=== PATIENT | female | born 1990 | race African-American/Black ===

== ENCOUNTER 2018-07-09 05:06 | Inpatient (IN) ==
[2018-07-08 15:17] LABS: BASO# 0.04 X1000 (0.0-0.2); BASO% 0.3 % (0.0-0.8); EOS# 0.09 X1000 (0.0-0.7); EOS% 0.7 % (0.0-10.0); HEMATOCRIT 31.8 % (37.0-47.0); HEMOGLOBIN 10.5 g/dL (12.0-16.0); IMM GRAN# 0.31 X1000 (0.0-0.04); IMM GRAN% 2.4 % (0.0-0.5); LYMPH# 2.76 X1000 (1.2-3.4); LYMPH% 21.6 % (20.5-51.1); MONO# 0.97 X1000 (0.11-0.59); MONO% 7.6 % (1.7-9.3); MPV 9.6 FL (7.4-10.4); NEUT# 8.61 X1000 (1.4-6.5); NEUT% 67.4 % (42.2-75.2); PLT 288 X1000 (130-400); RBC 3.28 XMIL (4.2-5.4); RDW 13.1 % (11.5-14.5); WBC 12.78 X1000 (4.8-10.8)
--- NOTE | 2018-07-08 16:22 | HISTORY AND PHYSICAL ---
HISTORY OF PRESENT ILLNESS: The patient is a 28-year-old black female, G4, P1, A2, who will be 39 weeks gestation on 07/09/2018 based on an EDC of 07/16/2018. The patient has a history of prior section and will be scheduled for repeat section. care significant for anemia with, rubella nonimmune status. PAST MEDICAL HISTORY: Unremarkable. PAST SURGICAL HISTORY: Significant for a previous section as well as a D and C x2. PAST OBSTETRIC HISTORY: G4, P1, A2, elective AB x2. GYNECOLOGICAL HISTORY: Menarche at age 14 and has otherwise been normal. FAMILY HISTORY: Significant for strokes as well as breast cancer. REVIEW OF SYSTEMS: Migraines occasional. SOCIAL HISTORY: Tobacco use none. Alcohol use none. MEDICATIONS: vitamins as well as iron pills. ALLERGIES: No known drug allergies. PHYSICAL EXAMINATION: VITAL SIGNS: Height 5 feet 3 inches, weight 165 pounds. Blood pressure 105/57, pulse 84, respirations 20. heart rate 148. HEENT: Pupils equal, round, react light and accommodation. Extraocular movements intact. Oropharynx clear. NECK: Supple. No thyromegaly. LUNGS: Clear to auscultation. HEART: Regular rate and rhythm. ABDOMEN: Gravid, nontender. EXTREMITIES: No clubbing, cyanosis, or edema. NEUROLOGIC: Cranial nerves II through XII grossly intact. Motor 5/5. ASSESSMENT AND PLAN: A 28-year-old black female, G4, P1, A2 and at 39 weeks gestation on 07/09/2018 and was scheduled for repeat section on that day. The patient counseled about the risks of surgery including bleeding, infection, bowel or bladder injury. cc: Neil Douglas III, MD
[2018-07-09] MEDS ORDERED: REGLAN PO ONE (05:10)
[2018-07-09] MEDS ORDERED: KEFZOL 1 GM/D5W 1 GM/50 ML IVPB IV PRN (05:10)
[2018-07-09] MEDS ORDERED: PEPCID PO ONE (05:10)
[2018-07-09] MEDS: LR 1,000 ML IV SCH ×2 (05:44→06:16)
[2018-07-09 05:50] LABS: URINE SOURCE VOIDED
[2018-07-09 06:07] LABS: BILIRUBIN URINE NEGATIVE (NEGATIVE); BLOOD URINE 2+ (NEGATIVE); CLARITY SL. CLOUDY (CLEAR); COLOR YELLOW; GLUCOSE URINE NEGATIVE (NEGATIVE); KETONE URINE TRACE mg/dL (NEGATIVE); LEUKOCYTES URINE 1+ (NEGATIVE); NITRITE URINE NEGATIVE (NEGATIVE); PROTEIN URINE 1+(30 mg/dL) mg/dL (NEGATIVE); SP GRAVITY URINE 1.015; UROBILINOGEN URINE 4 mg/dL
[2018-07-09 06:17] LABS: UR AMPHETAMINES QUAL NONE DETECTED (NONE DETECT); UR BARBITUATES QUAL NONE DETECTED (NONE DETECT); UR BENZODIAZEPIN QUAL NONE DETECTED (NONE DETECT); UR CANNABINOIDS QUAL NONE DETECTED (NONE DETECT); UR COCAINE QUAL NONE DETECTED (NONE DETECT); UR METHADONE QUAL NONE DETECTED (NONE DETECT); UR METHAMPHETAMINE QUAL NONE DETECTED (NONE DETECT); UR OPIATES QUAL NONE DETECTED (NONE DETECT); UR OXYCODONE QUAL NONE DETECTED (NONE DETECT); UR PCP QUAL NONE DETECTED (NONE DETECT); UR PROPOXYPHENE QUAL NONE DETECTED (NONE DETECT); UR TCA QUAL NONE DETECTED (NONE DETECT)
[2018-07-09] MEDS ORDERED: DURAMORPH ONE (06:56)
[2018-07-09] MEDS ORDERED: ZOFRAN ONE (06:57)
[2018-07-09] MEDS ORDERED: EPHEDRINE ONE (06:57)
[2018-07-09] MEDS ORDERED: PITOCIN ONE (06:57)
[2018-07-09] MEDS ORDERED: CALCIUM CHLORIDE SYRINGE ONE (07:02)
[2018-07-09] MEDS ORDERED: MARCAINE 0.5% PF ONE (07:06)
[2018-07-09] MEDS ORDERED: TORADOL ONE (07:55)
[2018-07-09] MEDS ORDERED: AMBIEN PO PRN (08:15)
[2018-07-09] MEDS ORDERED: M-M-R II VACCINE SUBQ ONE (08:15)
[2018-07-09] MEDS ORDERED: NORCO-5 PO PRN (08:15)
[2018-07-09] MEDS ORDERED: DEMEROL PO PRN ×2 (08:15)
[2018-07-09] MEDS ORDERED: PHENERGAN IM PRN (08:15)
[2018-07-09] MEDS ORDERED: PITOCIN IM PRN (08:15)
[2018-07-09] MEDS ORDERED: MYLICON PO PRN (08:15)
[2018-07-09] MEDS ORDERED: DEMEROL IM PRN (08:15)
[2018-07-09] MEDS ORDERED: HYDROXYZINE IM PRN (08:15)
[2018-07-09] MEDS ORDERED: BOOSTRIX VACCINE IM ONE (08:15)
[2018-07-09] MEDS ORDERED: DULCOLAX PR PRN (08:15)
[2018-07-09] MEDS ORDERED: PITOCIN 20 UNITS/NS 20 UNITS/1,000 ML IV.SOLN IV ONE (08:15)
[2018-07-09] MEDS ORDERED: ZOFRAN IV PRN ×2 (08:30)
[2018-07-09] MEDS ORDERED: BENADRYL IV PRN (08:30)
[2018-07-09] MEDS ORDERED: NARCAN INJ PRN (08:30)
[2018-07-09] MEDS ORDERED: ZOFRAN ODT PO PRN (08:30)
--- NOTE | 2018-07-09 08:40 | OPERATIVE NOTE ---
PROCEDURE DATE: 07/09/2018 PREOPERATIVE DIAGNOSIS: Intrauterine at 39 weeks with a history of prior section. POSTOPERATIVE DIAGNOSES: 1. Intrauterine at 39 weeks with a history of prior section. 2. Operative delivery of a male , 5 pounds 1 ounce, with Apgars of 9 and 9 at 0734 on 07/09/2018, breech presentation noted. PROCEDURE PERFORMED: Repeat low-transverse section. SURGEON: Neil Douglas III, MD. MEDICAL OFFICE TECHNOLOGY INSTRUCTOR: David Durham DO. ANESTHESIA: Spinal, Dr. Lopez. FINDINGS: Normal-appearing uterus, tubes, and ovaries. COMPLICATIONS: None. ESTIMATED BLOOD LOSS: 500 mL. SPECIMENS REMOVED: None. DRAINS: Huitron to straight drain. COUNTS: All counts were correct x3. INDICATIONS: Patient 28-year-old black female, G4, P1, A2 at 39 weeks gestation with his history of prior section, for a repeat section. Patient was counseled about the risks of surgery including bleeding, infection, bowel or bladder injury. PROCEDURE: The patient was taken to Labor and Delivery OR. Spinal anesthesia was then employed and the patient was placed in supine position with a roll under right hip. She was then prepped and draped in a sterile fashion with placement of Huitron catheter and adequate anesthesia was noted by using Allis clamps on skin and then a Pfannenstiel skin incision was made on lower abdomen using a scalpel. This was taken down sharply to the fascia layer. A small akash was made in the rectus fascia, then fascial incision was extended bilaterally by curved Bernard scissors. Then blunt and sharp dissection of the superior and inferior aspects of the rectus fascia was performed. Then the rectus muscles divided in the midline. Peritoneal layer was entered bluntly and then the peritoneal incision was extended superiorly and inferiorly with care taken to avoid the bladder. Bladder reflection was created using Metzenbaum scissors. The bladder blade was placed into the abdominal cavity and then a transverse incision was made on the lower uterine segment. This incision was then extended bilaterally by the surgeon's fingers. The fluid upon entry was noted to be clear. Upon entry, breech presentation was noted and breech extraction was performed without difficulty. The umbilical cord was clamped twice and then cut and infant handed to the nurse in attendance for delivery after bulb suction of nose and mouth, and then the cord blood samples obtained at this time. Placenta was then manually extracted. Uterus was exteriorized. A wet lap was placed around the uterus, a dry lap was then used to curette the uterine cavity of clots and debris x2. The uterine incision was then closed using 0 chromic in a running, locking fashion x1. Good hemostasis was noted. The posterior cul-de-sac was irrigated copiously. The uterus was then replaced back into the abdomen. Pericolic gutters were cleansed with moist lap sponges bilaterally. The uterine incision and bladder reflection were inspected and good hemostasis was noted. Peritoneal layer was then closed using 2-0 chromic in a running fashion x1 and 2 interrupted sutures to reapproximate the rectus muscle of 2-0 chromic and then the fascia layer was then closed using 0 PDS in a running fashion x1. Subcutaneous layer was then irrigated and electrocautery was used to obtain hemostasis and the skin was then reapproximated using michael. Patient tolerated the procedure well and was taken to the recovery room in stable condition. All counts were correct x3. cc: Neil Douglas III, MD
[2018-07-09] MEDS: FERROUS SULFATE PO SCH (09:45)
[2018-07-09] MEDS: MYLICON PO SCH ×4 (09:46→21:14)
[2018-07-09] MEDS: TORADOL IV SCH ×3 (09:47→20:14)
[2018-07-09] MEDS ORDERED: MORPHINE IV PRN (12:51)
[2018-07-09] MEDS: OFIRMEV 1000 MG/ISOTONIC SOLN 1,000 MG/100 ML BOTTLE IV SCH ×2 (13:02→18:59)
[2018-07-09] MEDS: PITOCIN 10 UNITS/NS 1,000 ML IV SCH (17:36)
[2018-07-09] MEDS: PERICOLACE PO SCH (21:15)
[2018-07-09] MEDS: ATARAX PO PRN (22:07)
[2018-07-10] MEDS: OFIRMEV 1000 MG/ISOTONIC SOLN 1,000 MG/100 ML BOTTLE IV SCH ×2 (01:08→06:52)
[2018-07-10] MEDS: ATARAX PO PRN (01:11)
[2018-07-10] MEDS: PITOCIN 10 UNITS/NS 1,000 ML IV SCH (01:54)
[2018-07-10] MEDS: TORADOL IV SCH (01:55)
[2018-07-10 06:15] LABS: BASO# 0.03 X1000 (0.0-0.2); BASO% 0.3 % (0.0-0.8); EOS# 0.12 X1000 (0.0-0.7); EOS% 1.1 % (0.0-10.0); HEMATOCRIT 25.3 % (37.0-47.0); HEMOGLOBIN 8.1 g/dL (12.0-16.0); IMM GRAN# 0.13 X1000 (0.0-0.04); IMM GRAN% 1.2 % (0.0-0.5); LYMPH# 2.87 X1000 (1.2-3.4); LYMPH% 27.2 % (20.5-51.1); MCH 31.4 PG (27-31); MCV 98.1 FL (81-99); MONO# 0.75 X1000 (0.11-0.59); MONO% 7.1 % (1.7-9.3); MPV 9.3 FL (7.4-10.4); NEUT# 6.67 X1000 (1.4-6.5); NEUT% 63.1 % (42.2-75.2); PLT 209 X1000 (130-400); RBC 2.58 XMIL (4.2-5.4); RDW 12.8 % (11.5-14.5); WBC 10.57 X1000 (4.8-10.8)
[2018-07-10] MEDS ORDERED: LR 1,000 ML IV SCH (08:15)
[2018-07-10] MEDS: FERROUS SULFATE PO SCH (09:20)
[2018-07-10] MEDS: MOTRIN PO PRN ×2 (09:20→19:26)
[2018-07-10] MEDS: NORCO-10 PO PRN ×3 (09:20→19:26)
[2018-07-10] MEDS: MYLICON PO SCH ×4 (09:21→21:56)
[2018-07-10] MEDS: PERICOLACE PO SCH (21:56)
[2018-07-10] MEDS: PERCOCET-10 PO PRN (22:38)
[2018-07-11] MEDS: PERCOCET-10 PO PRN ×5 (02:42→20:34)
[2018-07-11] MEDS: MOTRIN PO PRN ×2 (02:42→10:36)
[2018-07-11] MEDS ORDERED: TEARISOL OPH SOLUTION BOTH EYES PRN (03:05)
[2018-07-11] MEDS: FERROUS SULFATE PO SCH (08:43)
[2018-07-11] MEDS: MYLICON PO SCH ×3 (08:44→19:37)
[2018-07-11] MEDS ORDERED: PNEUMOVAX 23 IM ONE (10:15)
[2018-07-11] MEDS: PERICOLACE PO SCH (20:34)
[2018-07-12] MEDS: MYLICON PO SCH ×3 (00:56→13:11)
[2018-07-12] MEDS: MOTRIN PO PRN ×2 (00:57→09:04)
[2018-07-12] MEDS: PERCOCET-10 PO PRN ×3 (00:57→11:18)
[2018-07-12] MEDS: POLYTRIM OPH SOLUTION BOTH EYES SCH ×3 (07:00→15:01)
[2018-07-12] MEDS: FERROUS SULFATE PO SCH (09:04)
--- NOTE | 2018-07-12 12:08 | OB/GYN PROGRESS NOTE ---
Progress Note OB - . OB Progress Note: Vital Signs - 24 hr 07/11/18 15:36 07/11/18 19:37 07/11/18 19:49 Temperature 97.6 F 97.8 F Pulse Rate 81 76 79 Respiratory Rate 18 18 16 Blood Pressure 105/56 136/72 O2 Sat by Pulse Oximetry 100 100 98 07/12/18 02:00 07/12/18 05:27 07/12/18 08:40 Temperature 97.7 F 97.6 F Pulse Rate 81 81 72 Respiratory Rate 18 18 18 Blood Pressure 110/57 127/78 101/57 O2 Sat by Pulse Oximetry 100 97 98 S. Patient resting in bed. She is ambulating, eating, urinating well. She has light lochia and her pain is well controlled. She is well. O. Vitals WNL Chest: CTAB Heart: RRR Abdomen: Soft, uterine fundus below the umbilicus. Incision C/D/I, closed with michael. Ext: LE nontender, no edema B/L A/P 28yo s/p RLTCS, patient doing well. Discharge instructions given. D/C home today.
[2018-07-12 13:40] VITALS: BP 114/57
[2018-07-12] MEDS ORDERED: TYLENOL PO ONE (14:17)
--- NOTE | 2018-07-12 21:59 | DISCHARGE SUMMARY ---
ADMISSION DATE: 07/09/2018 DISCHARGE DATE: 07/12/2018 ADMITTING DIAGNOSIS: Intrauterine at term with previous section. DISCHARGE DIAGNOSIS: 1. Intrauterine at term, previous . 2. Status post repeat low transverse section. HISTORY: Patient is a 28-year-old G4, P2, who at 39 weeks underwent repeat section. was complicated by anemia and rubella nonimmune. She received section and did well . She delivered a male infant who was 5 pounds 1 ounce with Apgars of 9 and 9. The patient's hemoglobin was 10.5 on admission and decreased 8.1 postop. She is ambulating well and urinating well. Pain is well controlled. She is breast-feeding well and tolerating regular diet. It was thought that she was stable and doing well enough to go home by day 2. She will be discharged to home. DISCHARGE MEDICATIONS: Will be for pain medicine and iron. DISCHARGE INSTRUCTIONS: Were given. She was told to avoid any exercise, lifting, straining, or driving until she sees Dr. Douglas. She is supposed to see him this coming week for staple removal. She knows not to soak underwater in a tub or pool, signs for severe pain, bleeding, fever, or other problems she knows to go to the hospital to see Dr. Douglas. cc: DO Neil Lawrence III, MD
== END 2018-07-12 17:05 | disposition home or self-care (01) | DRG 788 ==
LOC: P.LD 05:06
PROVIDERS: ADMIT Obstetrics & Gynecology; ATTEND Obstetrics & Gynecology
CPT/HCPCS: 59025; 80104; 80301; 80305; 81003; 85025; 86592; 86850; 86900; 86901; 90707; 90732; 94761; 94799; A9270; G0431; G0434; G0477; J0131; J0690; J1200; J1885; J2270; J2274; J2275; J2405; J2590; J7120; Q9974; S0020